=== PATIENT | male | born 1930 | race Caucasian/White ===

== ENCOUNTER 2016-12-20 03:57 | Emergency (ER) | payer OTHER ==
[~2016-12-20] VITALS: Ht 177.8 cm; Wt 83.6 kg
[~2016-12-20 03:57] MED LIST: ADVAIR 250/501 DISK IH; ALBUTEROL2.5 MG/3 M IH; ASPIRIN81 M2 PO; CAPOTEN12.5 MG PO; LASIX20 MG PO; OXYCODONE-ACET1 EACH PO; PRESERVISION T1 EACH PO; PROSCAR5 MG PO; TOPROL XL50 MG PO; VITAMIN D31000 UNIT PO; VITAMIN E400 UNIT PO; XARELTO15 MG PO
[2016-12-20 04:56] LABS: HEMATOCRIT 44.6 % (38.0-50.0); MCH 31.1 PG (29.0-34.0); MCHC 33.6 G/DL (30.0-36.0); MCV 92.3 FL (86-99); MEAN PLAT.VOLUME 9.9 uM^3 (9.0-12.4); PLATELET COUNT 190 K/uL (156-360); RBC DIS.WIDTH-CV 13.8 % (11.8-14.6); RBC DIS.WIDTH-SD 47.2 % (39-53); RED BLOOD COUNT 4.83 M/uL (4.00-5.50); WHITE BLOOD COUNT 8.4 K/uL (4.1-10.2)
[2016-12-20 05:06] LABS: INTER. NORMALIZED RATIO 1.1; PROTHROMBIN TIME 11.1 (9.2-11.2)
[2016-12-20 05:07] LABS: CHLORIDE 102 mEq/L (99-109); POTASSIUM 4.3 mEq/L (3.7-5.4); SODIUM 135 mEq/L (136-147)
[2016-12-20 05:08] LABS: GLUCOSE 109 mg/dL (70-99)
[2016-12-20 05:10] LABS: ANION GAP 8 MEQ/L (2-14)
[2016-12-20 05:12] LABS: GFR ESTIMATE (CALCULATED) > 59 mL/min/
[2016-12-20 05:13] LABS: UREA NITROGEN (BUN) 18 mg/dL (9-23)
[2016-12-20 07:22] VITALS: BP 173/85
== END 2016-12-20 07:55 | disposition short-term general hospital (02) ==
LOC: EME 03:57
PROVIDERS: Emergency Medicine
DX: I77.1 Stricture of artery (principal); I10 Essential (primary) hypertension; I25.2 Old myocardial infarction; Z79.82 Long term (current) use of aspirin
CPT/HCPCS: 73706; 80048; 83605; 85027; 85610; 85730; 93005; 99281; 99283

== ENCOUNTER → 2017-09-03 | Outpatient (CLI) | payer OTHER | END | disposition home or self-care (01) | LOC: RAD 14:56 | DX: J44.9 Chronic obstructive pulmonary disease, unspecified (principal); R91.8 Other nonspecific abnormal finding of lung field | CPT/HCPCS: 71046 ==